=== PATIENT | female | born 1975 | race Caucasian/White ===

== ENCOUNTER 2016-03-25 13:04 | Emergency (ER) | payer OTHER ==
[2016-03-25 14:07] VITALS: BP 149/84
[2016-03-25] MEDS ORDERED: Ketorolac INJ* 60 MG/2 ML VIAL IM ONE (15:08)
--- NOTE | 2016-03-25 15:08 | UC ---
Upper Extremity HPI - HPI Summary HPI Summary: patient had an injury to neck and elbow 2 years ago, she has had increasing pain and numbness in the left arm ever since. limited ROM in all direction, states her elbow movements cause stabbing pains down her arm. - History of Current Complaint Chief Complaint: UCUpperExtremity Stated Complaint: NECK AND ELBOW PAIN Time Seen by Provider: 03/25/16 14:56 Hx Obtained From: Patient Hx Last Menstrual Period: Today ?: No Onset/Duration: Gradual Onset, Still Present Severity Initially: Severe Severity Currently: Severe Pain Intensity: 8 Pain Scale Used: 0-10 Numeric Location Of Pain: Is Diffuse - left upper extremity Aggravating Factor(s): Movement Alleviating Factor(s): Nothing Associated Signs And Symptoms: Positive: Numbness/Tingling - Risk Factors Non-Orthopedic Risk Factor: Negative DVT Risk Factors: Negative Septic Arthritis Risk Factor: Negative - Allergies/Home Medications Allergies/Adverse Reactions: Allergies Allergy/AdvReac Type Severity Reaction Status Date / Time Acetaminophen [From Tylenol] Allergy See Comment Verified 03/25/16 14:07 bee sting Allergy Swelling Uncoded 03/25/16 14:07 Of Face,Lips,& Throat eggs Allergy Vomiting Uncoded 03/25/16 14:07 PMH/Surg Hx/FS Hx/Imm Hx Previously Healthy: Yes Endocrine History Of: Denies: Diabetes Cardiovascular History Of: Reports: Hypertension Respiratory History Of: Reports: Asthma - Surgical History Surgical History: Yes Surgery Procedure, Year, and Place: tubal ligation - Family History Known Family History: Positive: Hypertension - Social History Alcohol Use: None Substance Use Type: None Smoking Status (MU): Former Smoker When Did the Patient Quit Smoking/Using Tobacco: 9 years ago Review of Systems Skin: Negative Eyes: Negative ENT: Negative Respiratory: Negative Cardiovascular: Negative Gastrointestinal: Negative Genitourinary: Negative Motor: Negative Neurovascular: Decreased Sensation - in left arm Musculoskeletal: Arthralgia, Decreased ROM, Myalgia Neurological: Negative Psychological: Negative All Other Systems Reviewed And Are Negative: Yes Physical Exam Triage Information Reviewed: Yes Appearance: Ill-Appearing, Pain Distress, Obese Vital Signs: Initial Vital Signs Temp 98.5 F 03/25/16 13:56 Pulse 92 03/25/16 13:56 Resp 24 03/25/16 13:56 BP 149/84 03/25/16 13:56 Pulse Ox 100 03/25/16 13:56 Vital Signs Reviewed: Yes Eye Exam: Normal Eyes: Positive: Conjunctiva Clear ENT Exam: Normal ENT: Positive: Normal ENT inspection, Hearing grossly normal, Pharynx normal, TMs normal Dental Exam: Normal Neck: Positive: Supple, Nontender, No Lymphadenopathy Respiratory Exam: Normal Respiratory: Positive: Chest non-tender, Lungs clear, Normal breath sounds Cardiovascular Exam: Normal Cardiovascular: Positive: RRR, No Murmur, Pulses Normal Abdominal Exam: Normal Abdomen Description: Positive: Nontender, No Organomegaly, Soft Bowel Sounds: Positive: Present Musculoskeletal: Positive: Strength Limited @ - left arm, ROM limited in shoulder adduction and extension. pronation of arm creates pain in elbow, FLx and EXT of elbow send shooting pain into hand. Neurological Exam: Normal Neurological: Positive: Alert, Muscle Tone Normal Psychological Exam: Normal Skin Exam: Normal Upper Extremity Course/Dx - Course Course Of Treatment: hx obtained, exam performed, xray of c spine reveals some degernative disc disease, elbow xray neg, toradol given, medication prescribed. referral for PT given. - Differential Dx/Diagnosis Differential Diagnosis/HQI/PQRI: Arthritis, Fracture (Closed), Strain, Sprain Provider Diagnoses: Degenerative Disc disease. cervical radicuopathy. elbow pain Discharge - Discharge Plan Condition: Stable Disposition: HOME Patient Education Materials: Degenerative Disc Disease (ED), Chronic Neck Pain (GEN) Additional Instructions: take the medication as prescribed. I recommend follow up with PT for increase mobility and reduction of pain. use the sling as needed.
--- NOTE | 2016-03-25 15:29 | RAD ---
Indication: Left elbow pain. 4 views of left elbow demonstrates no fracture. No other bone or joint abnormality is identified. No joint effusion is noted. IMPRESSION: No fracture of the left elbow is noted.
--- NOTE | 2016-03-25 15:31 | RAD ---
INDICATION: Neck pain radiating down the left arm. COMPARISON: Correlation is made with prior cervical spine exam from April 21, 2014. TECHNIQUE: 3 views of the cervical spine were obtained including lateral, AP and open-mouth odontoid views. FINDINGS: C1-C7 are visualized. The vertebra are in normal alignment. No prevertebral soft tissue swelling or fracture is seen. The disc spaces appear maintained. There is mild uncinate process spurring present at the C5-C6 and C6-C7 levels consistent with mild degenerative disc disease. IMPRESSION: MILD DEGENERATIVE DISC DISEASE.
== END 2016-03-25 15:59 | disposition home or self-care (01) ==
LOC: UCCORT 13:04
DX: M54.12 Radiculopathy, cervical region (principal); M50.320 Other cervical disc degeneration, mid-cervical region, unspecified level; E66.9 Obesity, unspecified; Z87.891 Personal history of nicotine dependence; Z88.6 Allergy status to analgesic agent
CPT/HCPCS: 72040; 96372; 99213; G0463; J1885

== ENCOUNTER 2016-07-07 13:40 | Emergency (ER) | payer OTHER ==
[2016-07-07 14:09] VITALS: BP 150/86
--- NOTE | 2016-07-07 14:41 | RAD ---
INDICATION: Right hip pain COMPARISON: None TECHNIQUE: An AP view of the pelvis and AP views of the hip in neutral and abducted position were obtained FINDINGS: Bones: There are no acute bony findings. Joint spaces: The hips articulate normally. The joint spaces are preserved. There is mild hypertrophic change about the right acetabulum SI joints/symphysis: The SI joints and symphysis are intact. Other: None IMPRESSION: MILD ARTHRITIC CHANGE RIGHT HIP CONSISTING OF HYPERTROPHIC CHANGE ABOUT THE ACETABULUM
--- NOTE | 2016-07-07 15:20 | UC ---
Hip/Pelvis Pain - HPI Summary HPI Summary: SIX MONTHS OF DULL RIGHT HIP PAIN; HAS BEEN WORSE OVER LAST TWO DAYS. NO KNOWN TRAUMA, RADIATES DOWN LEG. HISTORY OF LOW BACK PAIN WELL. - History Of Current Complaint Chief Complaint: UCBackPain Stated Complaint: RIGHT HIP PAIN INTO LEG /FOOT Time Seen by Provider: 07/07/16 13:50 Hx Obtained From: Patient Hx Last Menstrual Period: 07/07/16 Onset/Duration: Gradual Onset, Lasting Weeks, Worse Since - TWO DAYS Timing: Intermittent Episodes Lasting: Severity Initially: Mild Severity Currently: Moderate Pain Intensity: 7 Pain Scale Used: 0-10 Numeric Location: Discrete At: - RIGHT HIP, Radiates To: - BUTTOCKS, RIGHT LEG Character Of Pain: Dull, Aching Aggravating Factor(s): Movement Alleviating Factor(s): Nothing Associated Signs And Symptoms: Positive: Negative - Risk Factors Septic Arthritis Risk Factor: Negative - Allergies/Home Medications Allergies/Adverse Reactions: Allergies Allergy/AdvReac Type Severity Reaction Status Date / Time Acetaminophen [From Tylenol] AdvReac See Comment Verified 07/07/16 13:53 bee sting Allergy Swelling Uncoded 03/25/16 14:07 Of Face,Lips,& Throat eggs Allergy Vomiting Uncoded 03/25/16 14:07 Home Medications: Home Medications Ibuprofen TAB* [Motrin TAB* 800 MG] 800 mg PO Q6H PRN 07/07/16 [History Confirmed 07/07/16] PMH/Surg Hx/FS Hx/Imm Hx Previously Healthy: Yes Endocrine History Of: Denies: Diabetes Cardiovascular History Of: Reports: Hypertension Respiratory History Of: Reports: Asthma - Surgical History Surgical History: Yes Surgery Procedure, Year, and Place: tubal ligation - Family History Known Family History: Positive: Hypertension - Social History Occupation: Employed Full-time Lives: With Family Alcohol Use: None Substance Use Type: None Smoking Status (MU): Former Smoker Type: Cigarettes Amount Used/How Often: 1/2 ppd Length of Time of Smoking/Using Tobacco: approx 21 yrs When Did the Patient Quit Smoking/Using Tobacco: 2005 Review of Systems Constitutional: Negative Skin: Negative Eyes: Negative ENT: Negative Respiratory: Negative Cardiovascular: Negative Gastrointestinal: Negative Genitourinary: Negative Motor: Negative Neurovascular: Negative Musculoskeletal: Arthralgia, Myalgia Neurological: Negative Psychological: Negative All Other Systems Reviewed And Are Negative: Yes Physical Exam Triage Information Reviewed: Yes Appearance: Well-Appearing, No Pain Distress, Well-Nourished Vital Signs: Initial Vital Signs Temp 96.8 F 07/07/16 13:46 Pulse 100 07/07/16 13:46 Resp 16 07/07/16 13:46 BP 150/86 07/07/16 13:46 Pulse Ox 100 07/07/16 13:46 Vital Signs Reviewed: Yes Eye Exam: Normal ENT Exam: Normal ENT: Positive: Normal ENT inspection, TMs normal Dental Exam: Normal Neck exam: Normal Neck: Positive: Supple, Nontender Respiratory Exam: Normal Respiratory: Positive: Chest non-tender, Lungs clear, Normal breath sounds, No respiratory distress Cardiovascular Exam: Normal Cardiovascular: Positive: RRR, No Murmur, Pulses Normal Abdominal Exam: Normal Musculoskeletal: Positive: Strength Intact, ROM Intact, No Edema, Other: - TENDERNESS TO PALPATION OF RIGHT HIP; POSITIVE STRAIGHT LEG RAISE RIGHT LEG 15 DEGREES Neurological Exam: Normal Psychological Exam: Normal Hip Injury Course/Dx - Differential Dx/Diagnosis Differential Diagnosis/HQI/PQRI: Sprain, Strain Provider Diagnoses: RIGHT HIP STRAIN. RIGHT HIP OSTEOARTHRITIS Discharge - Discharge Plan Condition: Stable Disposition: HOME Prescriptions: Carisoprodol TAB* [Soma TAB*] 350 mg PO BID PRN #10 tab MDD TWO TABS PRN Reason: Spasms Patient Education Materials: Osteoarthritis (ED), Hip Sprain (ED) Forms: *Work Release Referrals: Rocco Velez PA [Primary Care Provider] - Additional Instructions: PHYSICAL THERAPY REFERRAL: You have been prescribed physical therapy. Treatments may include stretching, exercise, application of heat or cold, and other modalities. After an injury, PT can reduce swelling and pain. In recovery, PT is used to restore mobility and strength. Your specific treatment goals are: Reduction of Swelling (EGS, US, ice as needed) __X___ Pain Reduction (EGS, US, ice as needed) ____X_ TENS Pack Fitting and Instruction Wound Hydrotherapy __X___ Preservation of Mobility ___X__ Mandaeism of Mobility ___X__ Strength Mandaeism ____X_ Work or Sports Hardening This instruction sheet also serves as your PHYSICAL THERAPY REFERRAL! Please take it with you to the therapist, so he/she will be aware of your diagnosis and treatment plan. You may see the physical therapist of your choice for these treatments, but may wish to check with your insurance to be sure the provider you select is covered. It's important to see the doctor to whom you have been referred for follow up.
== END 2016-07-07 15:12 | disposition home or self-care (01) ==
LOC: UCCORT 13:40
DX: S76.011A Strain of muscle, fascia and tendon of right hip, initial encounter (principal); X58.XXXA Exposure to other specified factors, initial encounter; Y93.9 Activity, unspecified; Y92.9 Unspecified place or not applicable; M16.11 Unilateral primary osteoarthritis, right hip; I10 Essential (primary) hypertension; J45.909 Unspecified asthma, uncomplicated; Z88.6 Allergy status to analgesic agent; Z91.030 Bee allergy status; Z91.012 Allergy to eggs; Z87.891 Personal history of nicotine dependence
CPT/HCPCS: 99212; G0463

== ENCOUNTER 2016-10-27 10:46 | Emergency (ER) | payer OTHER ==
[2016-10-27 11:06] VITALS: BP 150/108
[2016-10-27] MEDS ORDERED: Tetan/Diph/Pertus SYR(Tdap)* 0.5 ML SYR(BOOSTRIX) use SYR IM ONE (11:16)
--- NOTE | 2016-10-27 11:38 | UC ---
Hand/Wrist HPI - HPI Summary HPI Summary: LAST WEEK HAS BEEN HAVING CHANGES TO RIGHT THUMB NAIL. NO KNOWN TRAUMA. AREA SWOLLEN AND TENDER. YESTERDAY (PROXIMAL) THUMBNAIL CAME OFF. SWELLING DRAINAGE AND REDNESS TO AREA (OF PROXIMAL THUMNAIL). 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 Negative: Fever, Weakness, Numbness/Tingling Related History: Dominant Hand Left - Allergies/Home Medications Allergies/Adverse Reactions: Allergies Allergy/AdvReac Type Severity Reaction Status Date / Time Bee Venom Allergy Swelling Verified 10/27/16 10:58 Of Face,Lips,& Throat Acetaminophen [From Tylenol] AdvReac See Comment Verified 10/27/16 10:58 Eggs or Egg-derived Products AdvReac GI Upset, Verified 10/27/16 10:58 NVD Home Medications: Home Medications Aspirin EC Low Dose* [Ecotrin EC Low Dose 81 MG*] 81 mg PO DAILY 10/27/16 [ History Confirmed 10/27/16] Cyclobenzaprine TAB* [Flexeril 10 MG TAB*] 10 mg PO TID PRN 10/27/16 [History Confirmed 10/27/16] Dicyclomine CAP* [Bentyl CAP*] 20 mg PO TID 10/27/16 [History Confirmed 10/27/16 ] Naproxen TAB* [Naprosyn 250 mg TAB*] 500 mg PO Q8H PRN 10/27/16 [History Confirmed 10/27/16] Neomycin/Polym/Bacit TOP OINT* [Neosporin TOP OINT TUBE*] 1 applic TOPICAL TID PRN 10/27/16 [History Confirmed 10/27/16] Omeprazole CAP* [Prilosec CAP* 20 MG] 40 mg PO DAILY 10/27/16 [History Confirmed 10/27/16] PMH/Surg Hx/FS Hx/Imm Hx Previously Healthy: Yes - Surgical History Surgical History: Yes Surgery Procedure, Year, and Place: Tubal Ligation, 2006, [place] - Family History Known Family History: Positive: Hypertension - Social History Occupation: Employed Full-time Lives: With Family Alcohol Use: Rare Substance Use Type: None Smoking Status (MU): Former Smoker Type: Cigarettes Amount Used/How Often: 1/2 ppd Length of Time of Smoking/Using Tobacco: ~1/4 PPD for 12 Years When Did the Patient Quit Smoking/Using Tobacco: 2006 - Immunization History Most Recent Influenza Vaccination: Not the Season Most Recent Tetanus Shot: "I don't know." Review of Systems Constitutional: Negative Skin: Other - ERYTHEMA, DRAINAGE, EDEMA PARTIAL NAIL AVULSION RIGHT PROXIMAL THUMBNAIL Eyes: Negative ENT: Negative Respiratory: Negative Cardiovascular: Negative Gastrointestinal: Negative Genitourinary: Negative Motor: Negative Neurovascular: Negative Musculoskeletal: Edema - ERYTHEMA, DRAINAGE, EDEMA PARTIAL NAIL AVULSION RIGHT PROXIMAL THUMBNAIL, Other: - ERYTHEMA, DRAINAGE, EDEMA PARTIAL NAIL AVULSION RIGHT PROXIMAL THUMBNAIL Neurological: Negative Psychological: Negative Is Patient Immunocompromised?: No All Other Systems Reviewed And Are Negative: Yes Physical Exam Triage Information Reviewed: Yes Appearance: Well-Appearing, No Pain Distress, Well-Nourished Vital Signs: Initial Vital Signs Temp 98.3 F 10/27/16 10:53 Pulse 96 10/27/16 10:53 Resp 16 10/27/16 10:53 BP 150/108 10/27/16 10:53 Pulse Ox 100 10/27/16 10:53 Vital Signs Reviewed: Yes Eye Exam: Normal ENT Exam: Normal ENT: Positive: Normal ENT inspection, Hearing grossly normal, TMs normal Dental Exam: Normal Neck exam: Normal Respiratory Exam: Normal Respiratory: Positive: Chest non-tender, Lungs clear, Normal breath sounds, No respiratory distress, No accessory muscle use Cardiovascular Exam: Normal Cardiovascular: Positive: RRR, No Murmur, Pulses Normal, Brisk Capillary Refill Abdominal Exam: Normal Musculoskeletal: Positive: Strength Intact, ROM Intact, Other: - ERYTHEMA, DRAINAGE, EDEMA PARTIAL NAIL AVULSION RIGHT PROXIMAL THUMBNAIL Neurological Exam: Normal Psychological Exam: Normal Skin: Positive: Other - ERYTHEMA, DRAINAGE, EDEMA PARTIAL NAIL AVULSION RIGHT PROXIMAL THUMBNAIL Hand/Wrist Course/Dx - Differential Dx/Diagnosis Differential Diagnosis/HQI/PQRI: Cellulitis, Infection, Paronychia Provider Diagnoses: RIGHT THUMB PARONYCHIA; RIGHT THUMB NAIL AVULSION Discharge - Discharge Plan Condition: Stable Disposition: HOME Prescriptions: Amoxicillin/Clavulanate TAB* [Augmentin TAB 875*] 875 mg PO BID #20 tab Patient Education Materials: Paronychia (ED), Nail Avulsion (ED) Referrals: Rocco Velez PA [Primary Care Provider] - John REYES,Hernan Guerrero [Medical Doctor] - If Needed Images Hands: 1 - ERYTHEMA, DRAINAGE, EDEMA PARTIAL NAIL AVULSION RIGHT PROXIMAL THUMBNAIL
== END 2016-10-27 11:32 | disposition home or self-care (01) ==
LOC: UCCORT 10:46
DX: L03.011 Cellulitis of right finger (principal); B95.61 Methicillin susceptible Staphylococcus aureus infection as the cause of diseases classified elsewhere; Z23 Encounter for immunization; Z88.6 Allergy status to analgesic agent; Z87.891 Personal history of nicotine dependence
CPT/HCPCS: 87070; 87077; 87186; 87205; 87640; 87641; 90471; 90715; 99212; G0463